=== PATIENT | female | born 1990 | race Caucasian/White ===

== ENCOUNTER 2019-06-24 15:36 | Emergency (ER) | payer OTHER ==
[~2019-06-24] VITALS: Ht 172.7 cm; Wt 72.7 kg
[2019-06-24 16:28] LABS: BASO # 0.1 (0.0-0.2); BASO % 0.7 % (0.0-2.0); EOS # 0.2 (0.0-0.7); EOS % 2.2 % (0-4.0); GRAN # 6.6 (1.4-6.5); GRAN % 74.5 % (42.2-75.2); HEMATOCRIT 40.6 % (37.0-47.0); HEMOGLOBIN 13.8 g/dl (12.5-16.0); LYMPH # 1.4 (1.2-3.4); LYMPH % 15.6 % (20.0-51.0); MEAN CELL VOLUME 88 fl (80.0-100.0); MEAN CORPUSCULAR HEMOGLOBIN 30 pg (27.0-31.0); MEAN CORPUSCULAR HGB CONC 34 g/dl (33.0-37.0); MEAN PLATELET VOLUME 9.9 fl (7.4-10.4); MONO # 0.6 (0.1-0.6); MONO % 6.7 % (1.7-9.3); PLATELET COUNT 213 K/mm3 (130-400)
[2019-06-24] MEDS ORDERED: KLONOPIN 1MG1 MG PO (16:29)
[2019-06-24] MEDS ORDERED: PROZAC40 MG PO (16:30)
[2019-06-24] MEDS ORDERED: LIDODERM 5% PATC1 EA TP (16:30)
[2019-06-24] MEDS ORDERED: TRILEPTAL 300M300 MG PO (16:30)
[2019-06-24] MEDS ORDERED: ADDERALL XR20 MG PO (16:31)
[2019-06-24] MEDS ORDERED: ZONEGRAN50 MG PO (16:32)
[2019-06-24] MEDS ORDERED: AMBIEN CR 12.12.5 MG PO (16:32)
[2019-06-24 16:49] LABS: PROTHROMBIN TIME 11.6 SECONDS (9.7-12.8)
[2019-06-24 16:52] LABS: ALANINE AMINOTRANSFERASE 23 U/L (9-52); ALBUMIN 4.2 gm/dL (3.5-5.0); ALKALINE PHOSPHATASE 95 U/L (50-136); ANION GAP 9 mmol/L (7-16); AST,SGOT 25 U/L (15-37); BILIRUBIN,TOTAL 0.1 mg/dL (0.0-1.0); BLOOD UREA NITROGEN 11 mg/dL (7-17); CALCIUM 8.7 mg/dL (8.4-10.2); CARBON DIOXIDE 23 mmol/L (22-30); CHLORIDE 108 mmol/L (98-107); CREATININE, serum 0.85 (0.52-1.25); GLUCOSE 80 mg/dL (74-106); POTASSIUM 3.8 mmol/L (3.4-5.0); SODIUM 140 mmol/L (137-145); TOTAL PROTEIN 7.3 gm/dL (6.4-8.2)
[2019-06-24 17:03] LABS: ACETAMINOPHEN < 10 ug/mL (10-30); ALCOHOL(ethanol),MEDICAL < 10 mg/dL; SALICYLATE < 1.0 mg/dL
[2019-06-24 17:07] LABS: PROLACTIN 16.9 ng/mL (3.0-18.6)
[2019-06-24 17:11] LABS: COLLECTION METHOD CLEAN CATCH
[2019-06-24 17:23] LABS: PH 7 (5-8); SQUAMOUS EPITHELIAL 0-2 /hpf; URINE APPEARANCE Hazy; URINE BACTERIA Rare /hpf; URINE BILIRUBIN Negative (NEGATIVE); URINE BLOOD 3+ (NEGATIVE); URINE COLOR Yellow; URINE GLUCOSE Negative (NEGATIVE); URINE KETONE Negative (NEGATIVE); URINE LEUKOCYTE ESTERASE 1+ (NEGATIVE); URINE NITRATE Negative (NEGATIVE); URINE PROTEIN(semi-quant) Negative (NEGATIVE); URINE RBC >50 /hpf; URINE UROBILINOGEN Negative (NEGATIVE)
[2019-06-24 17:57] LABS: TRICYCLIC ANTIDEPRESS URINE NEGATIVE
[2019-06-24 20:15] VITALS: BP 85/46; PULSE 60; TEMP 97.8
== END 2019-06-24 20:15 | disposition short-term general hospital (02) ==
LOC: COL.ER 15:36
PROVIDERS: Emergency Medicine
DX: G40.909 Epilepsy, unspecified, not intractable, without status epilepticus (principal); G81.91 Hemiplegia, unspecified affecting right dominant side; F32.9 Major depressive disorder, single episode, unspecified; F41.9 Anxiety disorder, unspecified
CPT/HCPCS: J1885; J7030